=== PATIENT | male | born 1970 | race Two or more races ===

== ENCOUNTER 2017-01-02 22:53 | Emergency (ER) | payer BC ==
[2017-01-02] MEDS ORDERED: Meclizine TAB* 12.5 MG PO ONE (23:14)
--- NOTE | 2017-01-02 23:28 | ED ---
I, Oh,Gertrude, scribed for Girma De León MD on 01/02/17 at 2319 . Dizziness - HPI Summary HPI Summary: This 46 y/o male presents to ED for acute on recurrent room-spinning dizziness this evening. Pt was watching TV on a couch and standing up to get a drink when pt experienced dizziness about an hour ago. The dizziness is constant and waxing and waning since the time of onset. PMHx does include known hx of vertigo , with the last episode 2+ years ago. Pt denies any nausea or fever. - History Of Current Complaint Chief Complaint: EDDizziness Stated Complaint: DIZZY FOR THE LAST HR Time Seen by Provider: 01/02/17 23:10 Hx Obtained From: Patient, Medical Records Onset/Duration: Still Present Timing: Constant Severity Initially: Mild Severity Currently: Mild Character: Room Spinning Aggravating Factor(s): Nothing Alleviating Factor(s): Nothing Associated Signs And Symptoms: Negative: Nausea, Fever - Allergies/Home Medications Allergies/Adverse Reactions: Allergies Allergy/AdvReac Type Severity Reaction Status Date / Time No Known Allergies Allergy Verified 01/02/17 22:59 PMH/Surg Hx/FS Hx/Imm Hx Neurological History: Reports: Other Neuro Impairments/Disorders - Vertigo Infectious Disease History: No Infectious Disease History: Denies: Traveled Outside the [place] in Last 30 Days - Family History Known Family History: Positive: Cardiac Disease Review of Systems Negative: Fever Negative: Nausea Neurological: Other - Positive for room-spinning dizziness Negative: Anxious, Depressed All Other Systems Reviewed And Are Negative: Yes Physical Exam Triage Information Reviewed: Yes Vital Signs On Initial Exam: Initial Vitals Temp Pulse Resp BP Pulse Ox 99.5 F 115 20 178/102 98 01/02/17 22:57 01/02/17 22:57 01/02/17 22:57 01/02/17 22:57 01/02/17 22:57 Vital Signs Reviewed: Yes Appearance: Positive: Well-Appearing, No Pain Distress Skin: Positive: Warm Head/Face: Positive: Normal Head/Face Inspection Eyes: Positive: LORE, Other: - mild horizontal nystagmus Neck: Positive: Supple, Nontender Respiratory/Lung Sounds: Positive: Breath Sounds Present Cardiovascular: Positive: RRR Abdomen Description: Positive: Nontender, Soft Bowel Sounds: Positive: Present Musculoskeletal: Positive: Strength/ROM Intact Neurological: Positive: Sensory/Motor Intact, Alert, Oriented to Person Place, Time, Normal Gait Psychiatric: Positive: Affect/Mood Appropriate Diagnostics - Vital Signs Vital Signs Temp Pulse Resp BP Pulse Ox 01/02/17 22:57 99.5 F 115 20 178/102 98 - Laboratory Lab Statement: Any lab studies that have been ordered have been reviewed, and results considered in the medical decision making process. Dizzy Course/Dx - Course Assessment/Plan: This 46 y/o male presents to ED with chief complaint of room- spinning dizziness this afternoon. Pt had been sitting in a couch watching TV and just stood up to get a drink at the time of the onset. PMHx is significant for known vertigo. Pt is symptomatically treated with meclizine during ED course. - Diagnoses Provider Diagnoses: Vertigo Discharge - Discharge Plan Condition: Improved Disposition: HOME Prescriptions: Meclizine TAB* [Antivert 12.5 TAB*] 25 mg PO TID #7 tab Patient Education Materials: Meclizine (By mouth), Vertigo (ED) Referrals: Crystal Lomas MD [Primary Care Provider] - 2 Days The documentation as recorded by the Guzman messina Soohyun accurately reflects the service I personally performed and the decisions made by , Girma De León MD.
[2017-01-03] MEDS ORDERED: NS 0.9% 1000 ML* 1,000 ML IV ONE (00:27)
[2017-01-03] MEDS ORDERED: PROCHLORPERAZINE INJ 5 MG/ML 2 ML VIAL IV ONE (00:27)
[2017-01-03 02:37] VITALS: BP 172/105
== END 2017-01-03 02:36 | disposition home or self-care (01) ==
LOC: ED 22:53
DX: R42 Dizziness and giddiness (principal)
CPT/HCPCS: 96374; 99282; A9270-GY; J0780

== ENCOUNTER 2017-04-23 11:40 | Emergency (ER) | payer BC ==
[2017-04-23 12:00] VITALS: BP 155/106
--- NOTE | 2017-04-23 12:28 | UC ---
Complaint Male HPI - HPI Summary HPI Summary: complaint of increase in urination for approx 1 week increase in urgency of urination as well no pain with urination dull achy intermittent left flank pain for approx 10 days denies fever and abdominal pain not taking any medication for symptoms was born with only one kidney - History of Current Complaint Chief Complaint: UCGU Stated Complaint: URINARY ISSUE Hx Obtained From: Patient - Allergies/Home Medications Allergies/Adverse Reactions: Allergies Allergy/AdvReac Type Severity Reaction Status Date / Time No Known Allergies Allergy Verified 01/02/17 22:59 PMH/Surg Hx/FS Hx/Imm Hx Previously Healthy: Yes Endocrine History Of: Denies: Diabetes, Thyroid Disease Cardiovascular History Of: Reports: Hypertension Denies: Cardiac Disorders Respiratory History Of: Reports: COPD, Asthma GI/ History Of: Denies: Ulcer - Surgical History Surgical History: Yes Surgery Procedure, Year, and Place: back surgery,hernia repair - Family History Known Family History: Positive: Cardiac Disease Negative: Diabetes, Renal Disease - Social History Occupation: Employed Full-time Lives: With Family Alcohol Use: Rare Substance Use Type: None Smoking Status (MU): Never Smoked Tobacco Review of Systems Constitutional: Negative Skin: Negative Eyes: Negative ENT: Negative Respiratory: Negative Cardiovascular: Negative Gastrointestinal: Negative Genitourinary: Frequency, Urgency Motor: Negative Neurovascular: Negative Musculoskeletal: Negative Neurological: Negative Psychological: Negative All Other Systems Reviewed And Are Negative: Yes Physical Exam Triage Information Reviewed: Yes Appearance: No Pain Distress, Well-Nourished Vital Signs: Initial Vital Signs Temp 97.7 F 04/23/17 11:55 Pulse 107 04/23/17 11:55 Resp 18 04/23/17 11:55 BP 155/106 04/23/17 11:55 Pulse Ox 99 04/23/17 11:55 Vital Signs Reviewed: Yes Eyes: Positive: Conjunctiva Clear ENT: Positive: Pharynx normal, TMs normal Neck: Positive: No Lymphadenopathy Respiratory: Positive: Lungs clear, Normal breath sounds, No respiratory distress, No accessory muscle use Cardiovascular: Positive: RRR, No Murmur, Pulses Normal, Brisk Capillary Refill Abdomen Description: Positive: Nontender, No Organomegaly, Soft. Negative: CVA Tenderness (R), CVA Tenderness (L), Distended, Guarding Musculoskeletal Exam: Normal Neurological: Positive: Alert Psychological Exam: Normal Skin Exam: Normal Complaint Male Course/Dx - Course Course Of Treatment: exam completed. UA normal. BP elevated and tachycardia. due to only one kidney will send to ED department for further evaluation of symptoms - Differential Dx/Diagnosis Differential Diagnosis/HQI/PQRI: Ureteral Calculi, Urinary Tract Infection, Other - altered kidney function Provider Diagnoses: lft flank pain, increase in urinary frequency - Physician Notifications Discussed Patient Care With: Lili JI Time Discussed With Above Provider: 12:55 Discharge - Discharge Plan Condition: Stable Disposition: ADMITTED TO [facility] Referrals: Crystal Lomas MD [Primary Care Provider] - Van Best MD [Medical Doctor] -
== END 2017-04-23 13:00 | disposition short-term general hospital (02) ==
LOC: UCEAST 11:40
DX: R10.32 Left lower quadrant pain (principal); R35.0 Frequency of micturition; I10 Essential (primary) hypertension; J44.9 Chronic obstructive pulmonary disease, unspecified
CPT/HCPCS: 81002; 99211; G0463

== ENCOUNTER 2017-04-23 14:50 | Emergency (ER) | payer BC ==
[2017-04-23] MEDS ORDERED: NS 0.9% 1000 ML* 1,000 ML IV ONE (15:23)
[2017-04-23 16:30] LABS: Urine Bilirubin Negative (Negative); Urine Glucose Negative (Negative); Urine Nitrite Negative (Negative)
[2017-04-23 16:33] LABS: Hematocrit 48 % (42-52); Hemoglobin 16.2 g/dl (14.0-18.0); Mean Corpuscular HGB Conc 34 g/dl (31-36); Mean Corpuscular Hemoglobin 30 pg (27-31); Mean Corpuscular Volume 88 fL (80-94); Mean Platelet Volume 8 um3 (7.4-10.4); Red Blood Count 5.48 10^6/ul (4.0-5.4); Red Cell Distribution Width 12 % (10.5-15); White Blood Count 7.8 10^3/ul (3.5-10.8)
[2017-04-23 16:41] LABS: ALT 23 U/L (7-52); AST 25 U/L (13-39); Albumin 4.7 g/dL (3.2-5.2); Alkaline Phosphatase 67 U/L (34-104); Anion Gap 9 mmol/L (2-11); BUN/Creatinine Ratio 10.7 (8-20); Blood Urea Nitrogen 13 mg/dL (6-24); C Reactive Protein < 1.00 mg/L (< 5.00); CO2 Carbon Dioxide 25 mmol/L (22-32); Calcium 10.6 mg/dL (8.6-10.3); Chloride 102 mmol/L (101-111); EGFR Non-African American 64.5 (>60); Globulin 3.4 g/dL (2-4); Glucose 87 mg/dL (70-100); Potassium 4.3 mmol/L (3.5-5.0); Sodium 136 mmol/L (133-145); Total Protein 8.1 g/dL (6.4-8.9)
[2017-04-23 17:21] LABS: TSH (Thyroid Stimulating Horm) 0.73 mcIU/mL (0.34-5.60)
[2017-04-23] MEDS ORDERED: Ciprofloxacin TAB* 500 MG PO ONE (17:29)
[2017-04-23 18:14] VITALS: BP 144/90
--- NOTE | 2017-04-23 18:46 | ED ---
Maged Hawley Billy, scribed for Prince Raman MD on 04/23/17 at 1519 . GI/ HPI - HPI Summary HPI Summary: Patient is a 46 year-old male coming to [facility] for evaluation of frequent urination for the last week. He denies any increase in fluid intake or any other changes. Denies any similar previous episodes. He also reports back pain starting at around the same time as his increased urinary frequency. He also reports dysuria. Denies fevers or chills. Patient was born with only one kidney. There is a strong family history of numerous renal disorders. - History of Current Complaint Chief Complaint: EDUrogenitalProblems Time Seen by Provider: 04/23/17 15:14 Stated Complaint: FREQUENT URINATING Hx Obtained From: Patient Onset/Duration: Started Days Ago Timing: Intermittent Severity: Moderate Current Severity: Moderate Associated Signs and Symptoms: Positive: Back Pain, Dysuria. Negative: Fever, Chills Aggravating Factor(s): Nothing Alleviating Factor(s): Nothing - Allergy/Home Medications Allergies/Adverse Reactions: Allergies Allergy/AdvReac Type Severity Reaction Status Date / Time No Known Allergies Allergy Verified 04/23/17 14:52 PMH/Surg Hx/FS Hx/Imm Hx Endocrine/Hematology History: Denies: Hx Diabetes, Hx Thyroid Disease Cardiovascular History: Reports: Hx Hypertension Respiratory History: Reports: Hx Asthma, Hx Chronic Obstructive Pulmonary Disease (COPD) GI History: Denies: Hx Ulcer Neurological History: Reports: Other Neuro Impairments/Disorders - Vertigo - Surgical History Surgery Procedure, Year, and Place: back surgery,hernia repair Infectious Disease History: No Infectious Disease History: Denies: Hx Clostridium Difficile, Hx Hepatitis, Hx Human Immunodeficiency Virus (HIV), Hx of Known/Suspected MRSA, Hx Shingles, Hx Tuberculosis, Hx Known/ Suspected VRE, Hx Known/Suspected VRSA, History Other Infectious Disease, Traveled Outside the [place] in Last 30 Days - Family History Known Family History: Positive: Cardiac Disease, Renal Disease - kindey stones Negative: Diabetes - Social History Alcohol Use: Rare Substance Use Type: Reports: None Smoking Status (MU): Never Smoked Tobacco Review of Systems Negative: Fever, Chills Positive: dysuria, frequency Musculoskeletal: Other - back pain All Other Systems Reviewed And Are Negative: Yes Physical Exam - Summary Physical Exam Summary: VITAL SIGNS: Reviewed. GENERAL: Patient is a well developed and nourished male who is lying comfortable in the stretcher. Patient is not in any acute respiratory distress. HEAD AND FACE: Normocephalic EYES: PERRLA, EOMI x 2. EARS: Hearing grossly intact. MOUTH: Oropharynx within normal limits. NECK: Supple, trachea is midline, no adenopathy, no JVD, no carotid bruit. CHEST: Symmetric, no tenderness at palpation LUNGS: Clear to auscultation bilaterally. No wheezing or crackles. CVS: Regular rate and rhythm, S1 and S2 present, no murmurs or gallops appreciated. ABDOMEN: Soft, non-tender. Bowel sounds are normal. No abdominal abnormal pulsations. EXTREMITIES: Full ROM in all major joints, no edema, no cyanosis or clubbing. NEURO: Alert and oriented x 3. No acute neurological deficits. Speech is normal and follows commands. MUSCULOSKELETAL: Positive scoliosis. SKIN: Dry and warm Triage Information Reviewed: Yes Vital Signs On Initial Exam: Initial Vitals Temp Pulse Resp BP Pulse Ox 98.2 F 114 18 143/93 99 04/23/17 14:52 04/23/17 14:52 04/23/17 14:52 04/23/17 14:52 04/23/17 14:52 Vital Signs Reviewed: Yes Diagnostics - Vital Signs Vital Signs Temp Pulse Resp BP Pulse Ox 04/23/17 14:52 98.2 F 114 18 143/93 99 - Laboratory Lab Results: Lab Results 04/23/17 04/23/17 04/23/17 Range/Units 16:10 16:10 16:10 WBC 7.8 (3.5-10.8) 10^3/ul RBC 5.48 H (4.0-5.4) 10^6/ul Hgb 16.2 (14.0-18.0) g/dl Hct 48 (42-52) % MCV 88 (80-94) fL MCH 30 (27-31) pg MCHC 34 (31-36) g/dl RDW 12 (10.5-15) % Plt Count 166 (150-450) 10^3/ul MPV 8 (7.4-10.4) um3 Neut % (Auto) 71.3 (38-83) % Lymph % (Auto) 18.8 L (25-47) % [place] % (Auto) 7.6 (1-9) % Eos % (Auto) 1.7 (0-6) % Baso % (Auto) 0.6 (0-2) % Absolute Neuts (auto) 5.6 (1.5-7.7) 10^3/ul Absolute Lymphs (auto) 1.5 (1.0-4.8) 10^3/ul Absolute Monos (auto) 0.6 (0-0.8) 10^3/ul Absolute Eos (auto) 0.1 (0-0.6) 10^3/ul Absolute Basos (auto) 0 (0-0.2) 10^3/ul Absolute Nucleated RBC 0 10^3/ul Nucleated RBC % 0 Sodium 136 (133-145) mmol/L Potassium 4.3 (3.5-5.0) mmol/L Chloride 102 (101-111) mmol/L Carbon Dioxide 25 (22-32) mmol/L Anion Gap 9 (2-11) mmol/L BUN 13 (6-24) mg/dL Creatinine 1.22 H (0.67-1.17) mg/dL Est GFR ( Amer) 83.0 (>60) Est GFR (Non-Af Amer) 64.5 (>60) BUN/Creatinine Ratio 10.7 (8-20) Glucose 87 (70-100) mg/dL Lactic Acid (0.5-2.0) mmol/L Calcium 10.6 H (8.6-10.3) mg/dL Total Bilirubin 0.60 (0.2-1.0) mg/dL AST 25 (13-39) U/L ALT 23 (7-52) U/L Alkaline Phosphatase 67 (34-104) U/L C-Reactive Protein < 1.00 (< 5.00) mg/L Total Protein 8.1 (6.4-8.9) g/dL Albumin 4.7 (3.2-5.2) g/dL Globulin 3.4 (2-4) g/dL Albumin/Globulin Ratio 1.4 (1-3) TSH 0.73 (0.34-5.60) mcIU/mL Urine Color Yellow Urine Appearance Clear Urine pH 7.0 (5-9) Ur Specific [place] 1.018 (1.010-1.030) Urine Protein Negative (Negative) Urine Ketones Negative (Negative) Urine Blood Negative (Negative) Urine Nitrate Negative (Negative) Urine Bilirubin Negative (Negative) Urine Urobilinogen Negative (Negative) Ur Leukocyte Esterase Negative (Negative) Urine Glucose Negative (Negative) Urine Ascorbic Acid * H (Negative) 04/23/17 Range/Units 16:10 WBC (3.5-10.8) 10^3/ul RBC (4.0-5.4) 10^6/ul Hgb (14.0-18.0) g/dl Hct (42-52) % MCV (80-94) fL MCH (27-31) pg MCHC (31-36) g/dl RDW (10.5-15) % Plt Count (150-450) 10^3/ul MPV (7.4-10.4) um3 Neut % (Auto) (38-83) % Lymph % (Auto) (25-47) % [place] % (Auto) (1-9) % Eos % (Auto) (0-6) % Baso % (Auto) (0-2) % Absolute Neuts (auto) (1.5-7.7) 10^3/ul Absolute Lymphs (auto) (1.0-4.8) 10^3/ul Absolute Monos (auto) (0-0.8) 10^3/ul Absolute Eos (auto) (0-0.6) 10^3/ul Absolute Basos (auto) (0-0.2) 10^3/ul Absolute Nucleated RBC 10^3/ul Nucleated RBC % Sodium (133-145) mmol/L Potassium (3.5-5.0) mmol/L Chloride (101-111) mmol/L Carbon Dioxide (22-32) mmol/L Anion Gap (2-11) mmol/L BUN (6-24) mg/dL Creatinine (0.67-1.17) mg/dL Est GFR ( Amer) (>60) Est GFR (Non-Af Amer) (>60) BUN/Creatinine Ratio (8-20) Glucose (70-100) mg/dL Lactic Acid 0.7 (0.5-2.0) mmol/L Calcium (8.6-10.3) mg/dL Total Bilirubin (0.2-1.0) mg/dL AST (13-39) U/L ALT (7-52) U/L Alkaline Phosphatase (34-104) U/L C-Reactive Protein (< 5.00) mg/L Total Protein (6.4-8.9) g/dL Albumin (3.2-5.2) g/dL Globulin (2-4) g/dL Albumin/Globulin Ratio (1-3) TSH (0.34-5.60) mcIU/mL Urine Color Urine Appearance Urine pH (5-9) Ur Specific [place] (1.010-1.030) Urine Protein (Negative) Urine Ketones (Negative) Urine Blood (Negative) Urine Nitrate (Negative) Urine Bilirubin (Negative) Urine Urobilinogen (Negative) Ur Leukocyte Esterase (Negative) Urine Glucose (Negative) Urine Ascorbic Acid (Negative) Result Diagrams: 04/23/17 16:10 04/23/17 16:10 Lab Statement: Any lab studies that have been ordered have been reviewed, and results considered in the medical decision making process. Re-Evaluation - Re-Evaluation First Eval Re-Evaluation Time: 17:22 Comment: Labs reviewed with the patient. GIGU Course/Dx - Course Assessment/Plan: Patient is a 46 year-old male coming to [facility] for evaluation of frequent urination for the last week. He denies any increase in fluid intake or any other changes. Denies any similar previous episodes. He also reports back pain starting at around the same time as his increased urinary frequency. He also reports dysuria. Denies fevers or chills. Patient was born with only one kidney. There is a strong family history of numerous renal disorders. Test results WNL. UA is negative for UTI. In the ED course, the patient is comfortable and asymptomatic. He reports that he had no symptoms at this time. He had only five episodes of urination today. He is hemodynamically stable, A& Ox3. He will be discharged home to follow up with his PCP. I discussed all the findings and test results with the patient. Patient was instructed to return to the emergency room immediately if any of the symptoms return or worsens. Plan of care was discussed with the patient and understands and agrees. All questions were answered at patient satisfaction. There were no further complaints or concerns. Lung exam before discharge: CTA B/L. Good air exchange. No wheezing or crackles heard. CVS: S1 and S2 present. No murmurs appreciated. Patient is alert and oriented x 3. Patient is hemodynamically stable. Patient will be discharged home with follow up PCP in the next 2-3 days - Diagnoses Differential Diagnoses - Male: Urinary Tract Infection, Other Provider Diagnoses: Urinary frequency Discharge - Discharge Plan Condition: Stable Disposition: HOME Patient Education Materials: Polyuria (ED) Referrals: Crystal Lomas MD [Primary Care Provider] - The documentation as recorded by the Maged messina Billy accurately reflects the service I personally performed and the decisions made by Lamine hopkins Walter, MD.
== END 2017-04-23 18:12 | disposition home or self-care (01) ==
LOC: ED 14:50
DX: R35.0 Frequency of micturition (principal); Q89.8 Other specified congenital malformations; Z84.1 Family history of disorders of kidney and ureter; I10 Essential (primary) hypertension; J44.9 Chronic obstructive pulmonary disease, unspecified
CPT/HCPCS: 36415; 80053; 81003; 83605; 84443; 85025; 86140; 99282

== ENCOUNTER 2019-01-11 10:30 | Emergency (ER) | payer BC | END 2019-01-11 11:05 | disposition left against medical advice (07) | LOC: UCEAST 10:30 | DX: Z53.21 Procedure and treatment not carried out due to patient leaving prior to being seen by health care provider (principal) ==